=== PATIENT | male | born 1950 | race Caucasian/White ===

== ENCOUNTER → 2019-05-13 09:28 | Outpatient (CLI) | payer MEDICARE, SELFPAY ==
--- NOTE | ~2019-05-13 | XR_ITS ---
XR lumbar spine 2-3V DATE: 05/13/2019 09:52 INDICATION: Low back pain, left sciatica TECHNIQUE: AP, lateral and coned lateral lumbosacral views COMPARISON: None FINDINGS: There is normal alignment of the lumbar spine. There is degenerative disc disease througho ut the lumbar and lumbosacral spine, most severe at L2-3. There is minimal retrolisthesis at L2-3 an d L3-4. No fracture or dislocation or bone destruction. The included lower thoracic and lumbar pedicles are intact. The sacroiliac joints are intact. IMPRESSION: Multi-level degenerative disc disease Reviewed, dictated and finalized at location A.
== END ==
PROVIDERS: PCP Family Medicine Adolescent Medicine; Visit Provider Family Medicine Adolescent Medicine
DX: M54.42 Lumbago with sciatica, left side (principal); M51.36 Other intervertebral disc degeneration, lumbar region
CPT/HCPCS: 72100

== ENCOUNTER → 2020-03-20 12:53 | Outpatient (CLI) | payer MEDICARE, SELFPAY ==
--- NOTE | ~2020-03-20 | XR_ITS ---
EXAMINATION: XR hip LT min 2V DATE: 03/20/2020 13:40 INDICATION: Left hip pain. TECHNIQUE: 2 views of left hip on 5 radiographs were obtained. COMPARISON: Left hip radiographs 07/18/2009 FINDINGS: Bone alignment is normal. No acute fracture. There is internal fixation of left femur with long antegrade intramedullary silvano, distal interlocking screw, and 2 femoral head/neck screws. There i s mild left hip osteoarthritis. IMPRESSION: 1. Mild left hip osteoarthritis. Reviewed, dictated and finalized at location B. [employer]
== END ==
PROVIDERS: Visit Provider Anesthesiology
DX: M16.12 Unilateral primary osteoarthritis, left hip (principal)
CPT/HCPCS: 73502

== ENCOUNTER → 2020-11-21 16:36 | Outpatient (CLI) | payer MEDICARE, SELFPAY ==
--- NOTE | ~2020-11-21 | XR_ITS ---
XR abdomen/kub 1V 11/21/2020 16:51 Indication: History of biliary stent placement Procedure: KUB Comparison: No prior studies for comparison. Findings: Bowel gas pattern is nonobstructive. Moderate colonic fecal loading. No abnormal calcificat ion. Lung bases are unremarkable. There is a dynamic compression screws transfixing the left femoral neck. Impression: 1: Nonobstructive bowel gas pattern. Reviewed, dictated and finalized at location A. Impression: 1: Nonobstructive bowel gas pattern.
== END ==
PROVIDERS: Visit Provider Internal Medicine Gastroenterology
DX: Z98.890 Other specified postprocedural states (principal)
CPT/HCPCS: 74018